=== PATIENT | female | born 1985 | race Caucasian/White ===

== ENCOUNTER 2021-06-24 02:16 | Emergency (ER) | payer OTHER, SELFPAY ==
[2021-06-24 02:20] VITALS: BP 136/90; PULSE 84; RESP 18; TEMP 36.3; O2SAT 100
--- NOTE | 2021-06-24 02:26 | ED.GENADULT ---
HPI - General Adult General Chief complaint: Dental/Oral Stated complaint: TOOTHACHE Source: patient Mode of arrival: ambulatory Limitations: no limitations History of Present Illness HPI narrative: Juany is a 36F with a PMH of COPD and tobacco use that presented to the ED with tooth pain. She has had worsening right lower molar pain getting worse for the last few days that is no longer controlled with ibuprofen and she cannot sleep. No fevers, chills, or SOB. Related Data Allergies Allergy/AdvReac Type Severity Reaction Status Date / Time No Known Allergies Allergy Verified 06/24/21 02:49 Review of Systems Constitutional: Constitutional: Reports no additional constitutional complaints Eyes: Eyes: Reports no additional eye complaints ENT: Reports as per HPI Cardiovascular: Cardiovascular: Reports no additional cardiovascular complaints Respiratory: Respiratory: Reports no additional respiratory complaints Gastrointestinal: Gastrointestinal: Reports no additional gastrointestinal complaints Genitourinary: Genitourinary: Reports no additional female genitourinary complaints Musculoskeletal: Musculoskeletal: Reports no additional musculoskeletal complaints Integumentary/Breasts: Skin/Breast: Reports system reviewed and no additional complaints, except as docu Neurologic: Reports system reviewed and no additional complaints, except as documented Psychiatric: Psychiatric: Reports no additional psychiatric complaints Endocrine: Endocrine: Reports no additional endocrine complaints Hematologic/Lymphatic: Hematologic/Lymphatic: Reports no additional hematologic/lymphatic complaints Allergic/Immunologic: Allergic/Immunologic: Reports no additional allergic/immunologic complaints Exam Const: General: no acute distress and alert Orientation/consciousness: patient oriented x3 Limitations: No altered mental status HENMT: Head: normal to inspection Other: poor dentition. Right lower back molar was cracked and the gum was erythematous, swollen and very TTP Eyes: Conjunctivae: conjunctivae normal Pupils: Equal, round and reactive pupils present Neck: Neck: lymphadenopathy (Right submandibular ) Chest: Chest palpation & inspection: normal inspection of the chest Resp: Effort & Inspection: normal respiratory effort Auscultation: clear to auscultation bilaterally Cardio: Rate: regular rate Rhythm: regular rhythm GI: Inspection: non-distended GI Palp: Yes Soft to palpation, No Tenderness to palpation present (GI) and No Guarding due to palpation present (GI) Skin: General skin exam: normal color Rashes: no rashes Neuro: General: patient oriented x3 and moves all extremities Extrem: General: normal to inspection Psych: Mental Status: mental status grossly normal Course Course Emergency Course: Given pill of Augmentin. Declined opioids and acetaminophen. Too close to recent ibuprofen for toradol. Discharge Plan Discharge Clinical Impression: Dental abscess Patient Disposition: Home, Self-Care Condition: Stable Instructions: Dental Abscess (ED) Additional Instructions: Please return to the ED for any new, concerning, or worsening symptoms. Prescriptions: New amoxicillin-pot clavulanate [Augmentin] 875-125 mg tablet 1 tablet PO Q12H Qty: 10 RF: 0 Follow-up/Referrals: UNKNOWN,DOCTOR [Primary Care Provider] - Stand Alone Forms: Work/School Release IP
[2021-06-24] MEDS: AMOXICILLIN/CLAVULANATE K 875-125 MG TAB 1 TABLET PO (02:44)
[2021-06-24] MEDS: LIDOCAINE HCL 2% VISC SOLN 15 ML UDC PO (03:02)
[2021-06-24 03:06] VITALS: BP 130/88; PULSE 80; RESP 18; TEMP 36.2; O2SAT 99
== END 2021-06-24 03:11 | disposition home or self-care (01) ==
PROVIDERS: Emergency Provider Family Medicine
DX: K04.7 Periapical abscess without sinus (principal)
CPT/HCPCS: 99283; A9270

== ENCOUNTER 2021-10-27 10:56 | Emergency (ER) | payer OTHER, SELFPAY ==
--- NOTE | ~2021-10-27 | XR_ITS ---
EXAMINATION: XR chest 1V portable DATE: 10/27/2021 11:52 INDICATION: Left posterior rib pain. TECHNIQUE: A single frontal view of the chest was obtained. COMPARISON: None. FINDINGS: The chest demonstrates clear lungs without pneumonia, pleural effusion, or pneumothorax. Th e heart size is normal. IMPRESSION: 1. No acute cardiopulmonary disease. Reviewed, dictated and finalized at location A. SIVE GRADER
--- NOTE | ~2021-10-27 | CT_ITS ---
EXAMINATION: CT brain wo con DATE: 10/27/2021 11:52 INDICATION: Headache. Sinus pressure. TECHNIQUE: Computed tomography (CT) of the head was performed without intravenous contrast. The mA wa s adjusted according to patient size. Iterative reconstruction technique was employed. The dose-lengt h product was 605.33 mGy-cm. COMPARISON: None FINDINGS: There is no intracranial hemorrhage, acute infarction, or abnormal intracranial mass lesion . The ventricles are normal in size. The paranasal sinuses are clear. The orbits are normal. The mast oid air cells are normal. C1 ring is ununited posteriorly, a normal variant. IMPRESSION: 1. Normal brain. Reviewed, dictated and finalized at location A. OTYPE OPERATOR IMPRESSION: 1. Normal brain.
[2021-10-27 11:13] VITALS: BP 124/73; PULSE 114; RESP 18; TEMP 37.8; O2SAT 98
--- NOTE | 2021-10-27 11:27 | ECG_ITS ---
Measurements Intervals [place] Rate: 94 P: 82 MI: 108 QRS: 76 QRSD: 84 T: 78 QT: 343 QTc: 431 Interpretive Statements SINUS RHYTHM WITH SHORT MI INTERVAL BASELINE WANDER- V1 BORDERLINE ECG Electronically Signed On 10-27-2021 16:12:39 GEOLOGICAL MANAGER by Gaston Kaiser D.O.
--- NOTE | 2021-10-27 11:32 | ED.HA ---
HPI - Headache General Chief Complaint: Urogenital-Female Stated Complaint: severe headache/pain in lower back Time Seen by Provider: 10/27/21 10:58 Source: patient and RN notes reviewed Mode of arrival: ambulatory Limitations: no limitations History of Present Illness MD elicited complaint: headache Onset (ago): day(s) (3) Onset description: gradually Location: frontal Severity: moderate Pain scale (0-10): 7 Quality & Timing: aching, throbbing and worst headache of life Exacerbating factors: light and noise Associated symptoms: other (left postero-lateral ribs painful.) Treatments prior to arrival: ibuprofen Related Data Allergies Allergy/AdvReac Type Severity Reaction Status Date / Time No Known Allergies Allergy Verified 06/24/21 02:49 Review of Systems Review of Systems: All systems reviewed & are unremarkable except as noted in HPI and below Constitutional: Constitutional: Reports chills and Reports fever(s) Neurologic: Reports headache(s) [facility] Past Medical History Medical History Chest wall pain Headache Exam Const: General: no acute distress and alert Orientation/consciousness: patient oriented x3 Limitations: no limitations HENMT: Ears: external ears normal and TM's normal bilaterally General nose exam: Normal external nose present and Normal nares present Face and sinus: normal facial exam and no sinus tenderness Throat: posterior oropharynx normal Eyes: Conjunctivae: conjunctivae normal Pupils: Equal, round and reactive pupils present EOM: EOMs intact bilaterally Neck: Neck: normal visual inspection and no lymphadenopathy Chest: Chest palpation & inspection: normal inspection of the chest Resp: Auscultation: clear to auscultation bilaterally Cardio: Rate: regular rate Rhythm: regular rhythm GI: GI Palp: Yes Soft to palpation and No Tenderness to palpation present (GI) Auscultation: normal bowel sounds : General: Yes CVA tenderness (minimal left) on the left and No no CVA tenderness Back/Spine/Pelvis: Back: CVA tenderness Skin: General skin exam: normal color Rashes: no rashes Neuro: General: patient oriented x3, moves all extremities, no meningeal signs, no focal motor deficits and CN's II-XI intact bilaterally Extrem: General: normal to inspection and no pedal edema Psych: Mental Status: mental status grossly normal Affect: normal affect Attitude: cooperative Thought content: Yes Normal thought content present Course Course Emergency Course: Pt was pain-free and stable in the ED. Reevaluation(s) Reevaluation #1: VSS. pt was ambulatory in the ED. Date: 10/27/21 Time: 11:55 Vital Signs Vital signs: Vital Signs Temperature 37.8 C H 10/27/21 11:13 Pulse Rate 114 H 10/27/21 11:13 Respiratory Rate 18 10/27/21 11:13 Blood Pressure 124/73 10/27/21 11:13 Pulse Oximetry 98 10/27/21 11:13 Temperature 37.8 C H 10/27/21 11:13 Pulse Rate 98 10/27/21 12:44 Respiratory Rate 18 10/27/21 12:44 Blood Pressure 95/60 L 10/27/21 12:44 Pulse Oximetry 98 10/27/21 12:44 MDM - Headache Differential Diagnosis Differential diagnosis: Likely migraine, tension headache, headache, sinusitis and other (viral syndrome.) Medical Records Attestation: I reviewed the patient's medical records. Lab Data Attestation: I reviewed the patient's lab results. Result diagrams: 10/27/21 11:53 10/27/21 11:53 Labs: Lab Results 10/27/21 10/27/21 10/27/21 Range/Units 11:53 11:53 11:53 WBC 10.5 (4.8-10.8) K/mm3 RBC 4.43 (4.20-5.40) M/mm3 Hgb 14.3 (12.0-15.0) g/dL Hct 42.0 (35.0-49.0) % MCV 94.8 (78.0-102.0) fL MCH 32.3 H (27.0-31.0) pg MCHC 34.0 (32.0-36.0) g/dL RDW 11.9 (11.6-14.4) % Plt Count 174 (150-420) K/mm3 MPV 10.0 (9.2-11.8) fl Immature Gran % (Auto) 0.3 H (0.0-0.0) % Neut % (Auto) 74.6 H (50.0-70.0) % Lymph %
[2021-10-27] MEDS: ACETAMINOPHEN 325 MG TABLET 650 MG PO (11:54)
[2021-10-27] MEDS: SODIUM CHLORIDE 0.9% IV 1,000 ML 999 ML IV CONT (11:55)
[2021-10-27] MEDS: KETOROLAC (*BKC) 60 MG/2 ML VIAL IM (11:55)
[2021-10-27 11:58] LABS: Basophils Absolute Auto 0.01 K/mm3 (0.00-0.10); Basophils Percent Auto 0.1 % (0.0-1.0); Eosinophils Absolute Auto 0.01 K/mm3 (0.02-0.50); Eosinophils Percent Auto 0.1 % (1.0-6.0); Hemoglobin 14.3 g/dL (12.0-15.0); Immature Granulocyte Absolute 0.03 K/mm3 (0.00-0.00); Immature Granulocyte Percent A 0.3 % (0.0-0.0); Lymphocytes Absolute Auto 1.17 K/mm3 (1.10-4.50); Lymphocytes Percent Auto 11.1 % (18.0-42.0); Mean Corpuscular Hemoglobin 32.3 pg (27.0-31.0); Mean Corpuscular Volume 94.8 fL (78.0-102.0); Monocytes Absolute Auto 1.45 K/mm3 (0.10-0.90); Monocytes Percent Auto 13.8 % (2.0-11.0); Neutrophils Absolute Auto 7.9 K/mm3 (1.7-7.2); Neutrophils Percent Auto 74.6 % (50.0-70.0); Platelet Count Result 174 K/mm3 (150-420); Red Blood Count 4.43 M/mm3 (4.20-5.40); Red Cell Distribution Width 11.9 % (11.6-14.4); White Blood Count 10.5 K/mm3 (4.8-10.8)
[2021-10-27 12:02] LABS: Add Urine Microscopic? YES; Appearance Urine Cloudy (Clear); Bilirubin Urine Negative (Negative); Blood Urine 3+ (Negative); Color Urine Light Yellow (Yellow); Glucose Urine UA Negative (Negative); Ketones Urine Negative (Negative); Leukocyte Esterase Ur 1+ (Negative); Nitrate Urine Positive (Negative); Protein Urine Trace (Negative); Specific Grav Ur 1.025 (1.010-1.020); Urobilinogen Urine 0.2 mg/dL (0.2-1.0); pH Urine 5.5 (5.0-8.0)
[2021-10-27 12:06] LABS: Bacteria Urine 3+ /hpf; Squamous Epithelial Cell Urine Few /hpf (Few); WBC Urine 31-50 /hpf (0-3)
[2021-10-27 12:15] LABS: Alanine Aminotransferase 24 U/L (14-59); Albumin Level 3.2 g/dL (3.4-5.0); Alkaline Phosphatase 50 U/L (46-116); Anion Gap 9 mmol/L (8-16); Aspartate Amino Transferase 16 U/L (15-37); Bilirubin,Total 0.3 mg/dL (0.00-1.00); Blood Urea Nitrogen 8 mg/dL (7-18); Calcium 8.4 mg/dL (8.5-10.1); Carbon Dioxide 28 mmol/L (21-32); Chloride 96 mmol/L (98-108); Estimated CRCL calculation 67 ml/min; Estimated Glomerular Filt Rate > 60; Glucose 104 mg/dL (70-99); Osmolality Calculated 274 mOsm/kg (285-295); Potassium 3.8 mmol/L (3.5-5.1); Sodium 133 mmol/L (136-145); Total Protein 7.4 g/dL (6.4-8.2); Troponin I 4.2 ng/L (0.00-60.4)
[2021-10-27 12:44] VITALS: BP 95/60; PULSE 98; RESP 18; O2SAT 98
[2021-10-27 12:52] LABS: Influenza A QL RT-PCR Negative (Negative); Influenza B QL RT-PCR Negative (Negative); SARS-CoV-2 RNA PCR Positive (Negative)
[2021-10-27 14:10] VITALS: BP 97/61; PULSE 95; RESP 16; O2SAT 98
== END 2021-10-27 14:11 | disposition home or self-care (01) ==
PROVIDERS: Emergency Provider Emergency Medicine
DX: N30.00 Acute cystitis without hematuria (principal); G43.909 Migraine, unspecified, not intractable, without status migrainosus; U07.1 COVID-19
CPT/HCPCS: 36415; 70450; 71045; 80053; 81001; 84484; 85025; 87502; 93005; 96361; 96365; 96372; 99283; 99284; A9270; C9803; J0696; J1885; J7030; U0003; U0005